=== PATIENT | female | born 1955 | race Caucasian/White ===

== ENCOUNTER → 2018-07-22 07:59 | Outpatient (CLI) | payer MEDICARE, SELFPAY ==
[2018-07-22 10:19] LABS: AST(SGOT) 18 U/L (15-37); Alanine Aminotransfer ALT/SGPT 24 U/L (13-56); Albumin, Serum 3.6 g/dL (3.2-5.0); Alkaline Phosphatase 96 U/L (45-117); Bilirubin, Direct 0.13 mg/dL (0.00-0.30); Cholesterol 186 mg/dL (200); High Density Lipoprotein 45 mg/dL; Protein, Total 7.6 g/dL (6.4-8.2); Triglycerides 302 mg/dL; Very Low Density Lipoprotein 60 mg/dL (5-40)
== END ==
PROVIDERS: Family Provider Internal Medicine; PCP Internal Medicine; Referring Provider Internal Medicine Cardiovascular Disease; Visit Provider Internal Medicine Cardiovascular Disease
DX: E78.5 Hyperlipidemia, unspecified (principal)
CPT/HCPCS: 36415; 80061; 80076

== ENCOUNTER → 2019-03-13 10:53 | Outpatient (CLI) | payer MEDICARE, SELFPAY ==
[2019-03-13 10:08] VITALS: BMI 44.0
--- NOTE | 2019-03-13 11:05 | RAD_ITS ---
STUDY: X-RAY CHEST REASON FOR EXAM: Female, 63 years old. TECHNIQUE: 2 views COMPARISON: March 03, 2017 FINDINGS: The lungs are clear and expanded. There is no demonstrated pleural abnormality. Normal size heart. Normal mediastinum and rhonda. Normal visualized pulmonary arteries. Normal visualized aortic arch and descending thoracic aorta. Mild hypertrophic changes seen involving the thoracic spine. Normal visualized ribs, clavicles, and shoulders. There is no demonstrated abnormality of the visualized soft tissue structures of the upper abdomen. RAD/Chest PA and Lateral IMPRESSION: Normal x-ray examination of the chest. Electronically Signed: Darya Brower, at 15:29 EDT Tel , Service support ,
== END ==
PROVIDERS: Family Provider Internal Medicine; PCP Internal Medicine; Referring Provider Internal Medicine Cardiovascular Disease; Visit Provider Internal Medicine Cardiovascular Disease
DX: R06.00 Dyspnea, unspecified (principal); R06.02 Shortness of breath
CPT/HCPCS: 71046

== ENCOUNTER → 2019-03-18 07:24 | Outpatient (CLI) | payer MEDICARE, SELFPAY ==
[2019-03-13 10:08] VITALS: BMI 44.0
[2019-03-18 08:03] LABS: Hematocrit 37.1 % (37-47); Hemoglobin 11.8 g/dl (12.0-15.0); Mean Corp Hgb Conc 31.8 g/gl (32-36); Mean Corpuscular Hgb 25.3 pg (27.0-32.0); Mean Corpuscular Volume 79.6 fL (81-99); Mean Platelet Vol. 9.3 fl (6.2-12.0); Platelet Count 304 K/mm3 (150-450); RBC Distribution Width CV 14.9 % (11.6-14.6); RBC Distribution Width SD 42.7 fl (35.1-43.9); Red Blood Count 4.66 M/mm3 (4.2-5.4); White Blood Count 9.3 K/mm3 (4.4-11.0)
[2019-03-18 08:07] LABS: Scan Indicated on CBC? Y/N NO
[2019-03-18 08:25] LABS: Anion Gap 6 (5-15); BUN 15 mg/dL (7-18); BUN/Creat Ratio 22.7 RATIO (10-20); Chloride 103 mmol/L (98-107); Creatinine, Serum 0.66 mg/dL (0.55-1.02); EST Glomerular Filtration Rate 97 mL/min (>60); Est Glom Filt Rate - Afr Amer 117 mL/min (>60); Glucose 162 mg/dL (74-106); Potassium 3.3 mmol/L (3.5-5.1); Sodium Level 139 mmol/L (136-145)
== END ==
PROVIDERS: Family Provider Internal Medicine; PCP Internal Medicine; Referring Provider Internal Medicine Cardiovascular Disease; Visit Provider Internal Medicine Cardiovascular Disease
DX: E87.5 Hyperkalemia (principal); I47.1 Supraventricular tachycardia; I10 Essential (primary) hypertension; Z98.890 Other specified postprocedural states
CPT/HCPCS: 36415; 80048; 85027

== ENCOUNTER → 2019-03-25 07:30 | Outpatient (CLI) | payer MEDICARE, SELFPAY ==
[2019-03-13 10:08] VITALS: BMI 44.0
[2019-03-25 09:31] LABS: Anion Gap 10 (5-15); BUN 13 mg/dL (7-18); BUN/Creat Ratio 20.6 RATIO (10-20); Chloride 103 mmol/L (98-107); Creatinine, Serum 0.63 mg/dL (0.55-1.02); EST Glomerular Filtration Rate 102 mL/min (>60); Est Glom Filt Rate - Afr Amer 123 mL/min (>60); Glucose 188 mg/dL (74-106); Potassium 3.8 mmol/L (3.5-5.1); Sodium Level 141 mmol/L (136-145)
== END ==
PROVIDERS: Family Provider Internal Medicine; PCP Internal Medicine; Referring Provider Internal Medicine Cardiovascular Disease; Visit Provider Internal Medicine Cardiovascular Disease
DX: E87.6 Hypokalemia (principal)
CPT/HCPCS: 36415; 80048

== ENCOUNTER → 2019-04-01 05:53 | Outpatient (CLI) | payer MEDICARE, SELFPAY ==
[2019-03-13 10:08] VITALS: BMI 44.0
--- NOTE | 2019-04-01 06:10 | ECHOCS_ITS ---
Reason For Study: DYSPNEA Procedure This was a 2D Doppler, Color Flow transthoracic echocardiogram. The study was technically difficult. Contrast injection was performed. Exam performed in department. Left Ventricle Normal LV size. Left ventricular systolic function is normal. The estimated ejection fraction is 65 %. No evidence for diastolic dysfunction. No regional wall motion abnormalities noted. Right Ventricle Normal RV size. Normal systolic function. Atria The left atrium is mildly enlarged. Normal right atrium. No doppler evidence for ASD. Mitral Valve There is no mitral annular calcification. Normal mitral valve. Mild (1+) mitral valve insufficiency. Tricuspid Valve Normal tricuspid valve. Mild tricuspid valve insufficiency. Right ventricular systolic pressure estimated to be 31 mmHg. Aortic Valve Trisinus/trileaflet aortic valve. Normal aortic valve. Pulmonic Valve The pulmonic valve is not well visualized. Great Vessels Normal sized aortic root. Pericardium/Pleural No pericardial effusion. Medication Diluted definity 2ml given slow IV push to enhance endocardial definition. MMode/2D Measurements & Calculations LVIDd: 4.8 cm IVSd: 0.81 cm Ao root diam: 2.7 cm LVIDs: 3.5 cm LVPWd: 0.81 cm RVDd: 3.4 cm FS: 27.8 % LAV(MOD-bp): 58.0 ml LVAd ap4: 35.5 cm2 SV(MOD-sp4): 80.3 ml LAV(MOD-bp) Indexed: 28.9 ml/m2 EDV(MOD-sp4): 122.3 ml LAV(MOD-sp2): 61.6 ml EDV(sp4-el): 129.9 ml LAV(MOD-sp4): 54.0 ml LVAs ap4: 18.3 cm2 ESV(MOD-sp4): 42.0 ml ESV(sp4-el): 44.6 ml EF(MOD-sp4): 65.7 % EF(sp4-el): 65.7 % SV(sp4-el): 85.3 ml LA A4 area: 20.1 cm2 LA dimension(2D): 4.0 cm RA A4 area: 17.1 cm2 Time Measurements MV dec time: 0.23 sec Doppler Measurements & Calculations MV E max alber: 89.1 cm/sec Lat Peak E' Alber: 9.2 cm/sec Med Peak E' Alber: 6.4 cm/sec MV A max alber: 105.3 cm/sec E/E' lat: 9.7 E/E' med: 13.9 MV E/A: 0.85 Ao V2 max: 138.2 cm/sec LV V1 max: 113.6 cm/sec PA V2 max: 99.3 cm/sec Ao max P.6 mmHg LV V1 max P.2 mmHg TR max alber: 265.1 cm/sec TR max P.2 mmHg Interpretation Summary The study was technically difficult. Contrast injection was performed. Left ventricular systolic function is normal. The estimated ejection fraction is 65 %. The left atrium is mildly enlarged. Mild (1+) mitral valve insufficiency. Mild tricuspid valve insufficiency. Right ventricular systolic pressure estimated to be 31 mmHg. No evidence for diastolic dysfunction. Ordering Physician: Rafita Monterroso Referring Physician: ADINA FRAZIER Performed By: Eulalia Arboleda, RDCS, RVT
--- NOTE | 2019-04-01 14:22 | STRESSREP_ITS ---
Stress Test Report Date: 04-01-19 Procedure: Exercise tolerance test/imaging study Indications: Shortness of breath/dyspnea Consent: Per the patient Procedure: The patient exercised on a Miky protocol for 4 minutes of 15 seconds completing Stage I and 1 minute and 15 seconds of Stage II achieving a peak heart rate of 157 bpm (98 % predicted maximal heart rate) with a peak blood pressure 180/70 mmHg and a peak MET capacity of 6 METs. The baseline ECG demonstrated normal sinus rhythm; nonspecific T wave abnormality. The peak exercise ECG demonstrated somatic/motion artifact with continued nonspecific T wave abnormality. There was a rare PVC during exercise. The functional capacity was considered decreased. There was no complaint of chest discomfort during exercise or recovery. The examination was discontinued secondary to dyspnea and hip discomfort. Impression: 1. Technically adequate (percent predicted maximal heart rate greater than 85%) exercise tolerance test 2. Peak exercise ECG demonstrated somatic/motion artifact with continued nonspecific T wave abnormality 3. There was a rare PVC during exercise 4. Nuclear images pending Myocardial perfusion imaging study: Technique: The patient was injected with 14.4 mCi of technetium 99m Cardiolite and subsequently rest SPECT Cardiolite nuclear imaging was obtained in the ho rizontal long, vertical long, and short axis views. The patient exercised on a Miky protocol for 4 minutes of 15 seconds completing Stage I and 1 minute and 15 seconds of Stage II achieving a peak heart rate of 157 bpm (98 % predicted maximal heart rate) with a peak blood pressure 180/70 mmHg and a peak MET capacity of 6 METs. The patient was injected with 44.6 mCi of technetium 99m Cardiolite and subsequently stress SPECT Cardiolite nuclear imaging was obtained in the horizontal long, vertical long, and short axis views. A gated Cardiolite study at peak stress was obtained. Interpretation: Rest and stress SPECT Cardiolite nuclear imaging status post realignment, normalization, and attenuation correction, demonstrates relative uniform tracer uptake and myocardial perfusion appearing within normal limits. There is end systolic thickening and brightening. The gated Cardiolite study demonstrates myocardial thickening and inward wall motion. The reported LVEF is 71 %. Impression: 1. Rest and stress SPECT Cardiolite nuclear imaging demonstrate relative uniform tracer uptake and myocardial perfusion appearing within normal limits. 2. The gated Cardiolite study reports an LVEF of 71 %. This note was generated with [email or web address] software. It may contain incorrect words, spelling, and punctuation that were not noted in checking the note before signing.
== END ==
PROVIDERS: Family Provider Internal Medicine; PCP Internal Medicine; Referring Provider Internal Medicine Cardiovascular Disease; Visit Provider Internal Medicine Cardiovascular Disease
DX: R07.9 Chest pain, unspecified (principal); I47.1 Supraventricular tachycardia; Z98.890 Other specified postprocedural states
CPT/HCPCS: 78452; 93017; 93225; 93226; 93306; A9500; Q9957; A4216; C8929

== ENCOUNTER → 2019-10-13 12:04 | Outpatient (CLI) | payer MEDICARE, SELFPAY ==
[2019-09-08 10:45] VITALS: BMI 42.2
[2019-10-13 13:22] LABS: AST(SGOT) 23 U/L (15-37); Alanine Aminotransfer ALT/SGPT 27 U/L (13-56); Albumin, Serum 3.5 g/dL (3.2-5.0); Alkaline Phosphatase 93 U/L (45-117); Bilirubin, Direct 0.08 mg/dL (0.00-0.30); Globulin 4.1 g/dL (2.2-4.2); Protein, Total 7.6 g/dL (6.4-8.2)
[2019-10-13 13:26] LABS: T4 Total, Thyroxin 9.1 ug/dL (4.8-13.9); Thyroid Stim Hormone (TSH) 2.38 uIU/mL (0.358-3.74)
== END ==
PROVIDERS: Internal Medicine Cardiovascular Disease; PCP Internal Medicine; Referring Provider Nurse Practitioner Family; Visit Provider Nurse Practitioner Family
DX: E78.5 Hyperlipidemia, unspecified (principal); I47.1 Supraventricular tachycardia; I10 Essential (primary) hypertension
CPT/HCPCS: 36415; 80076; 84436; 84443

== ENCOUNTER → 2022-07-10 | Outpatient (CLI) | payer MEDICARE, SELFPAY ==
--- NOTE | 2022-07-10 16:39 | MRI_ITS ---
STUDY: MR Spine Lumbar W/O Contrast 07/10/2022 9:23 PM REASON FOR EXAM: Female, 67 years old. Low Back pain SPINAL STENOSIS leg pain TECHNIQUE: MR Spine Lumbar W/O Contrast Standardized fat and water weighted pulse sequences were obtained. COMPARISON: ctap 8.26.15 FINDINGS: T12-L1: Loss of intervertebral disc height. There is endplate spondylosis of the vertebral body. Normal central canal and intervertebral neuroforamina. There is bilateral facet arthropathy. Normal lumbar lordosis. There is no substantial scoliosis. Normal conus medullaris that terminates at the L1. L1-2: Loss of intervertebral disc height. There is endplate spondylosis of the vertebral body. Normal central canal and intervertebral neuroforamina. There is bilateral facet arthropathy. L2-3: Normal endplates. Normal disc height, hydration and morphology. Normal bilateral facet joints. Normal central canal and bilateral lateral recesses. Normal bilateral intervertebral neural foramina. L3-4: Loss of intervertebral disc height. There is endplate spondylosis of the vertebral body. Normal central canal and intervertebral neuroforamina. There is bilateral facet arthropathy. L4-5: Loss of intervertebral disc height. There is endplate spondylosis of the vertebral body. There is bilateral facet arthropathy. Mild right neural foraminal stenosis. Compression of exiting nerve roots. L5-S1: Loss of intervertebral disc height. There is endplate spondylosis of the vertebral body. There is bilateral facet arthropathy. Posterior disc bulge. Mild right neural foraminal stenosis. Compression of exiting nerve roots. Normal visualized paraspinous soft tissue structures. MRI/Spine Lumbar (Routine) IMPRESSION: Multilevel degenerative changes, as described above. L5-S1: Mild right neural foraminal stenosis. Compression of exiting nerve roots. Electronically Signed: Virgil Rodrigez MD at 21:27 EDT ,
== END | disposition home or self-care (01) ==
LOC: MRI 16:36
PROVIDERS: PCP Internal Medicine; Visit Provider Orthopaedic Surgery
DX: M48.061 Spinal stenosis, lumbar region without neurogenic claudication (principal); M46.96 Unspecified inflammatory spondylopathy, lumbar region; M47.26 Other spondylosis with radiculopathy, lumbar region
CPT/HCPCS: 72148

== ENCOUNTER 2023-04-24 03:15 | Emergency (ER) | payer MEDICARE, SELFPAY ==
[2023-04-24 03:15] VITALS: BP 164/74; PULSE 100; RESP 16; TEMP 36.4; O2SAT 96; BMI 42.6
--- NOTE | 2023-04-24 03:35 | CT_ITS ---
EXAM: CT ABDOMEN AND PELVIS WITHOUT INTRAVENOUS CONTRAST CLINICAL INDICATION: left flank pain TECHNIQUE: Helically acquired images were obtained of the abdomen and pelvis without intravenous contrast. This CT exam was performed using one or more of the following dose reduction techniques: automated exposure control, adjustment of the mA and/or kV according to patient size, and/or use of iterative reconstruction technique. RADIATION DOSE: CTDIvol = 20.51 mGy, DLP = 927.42 mGy-cm COMPARISON: CT abdomen pelvis 05/12/2015 FINDINGS: LOWER THORAX: Unremarkable. Lung bases are clear. No cardiomegaly. No significant pericardial effusion. ABDOMEN: LIVER: Fatty infiltration of the liver. Hepatomegaly. GALLBLADDER AND BILE DUCTS: Cholecystectomy. No intra- or extrahepatic biliary ductal dilation. PANCREAS: Unremarkable. No focal cystic mass. SPLEEN: Unremarkable. Normal size without focal cystic or solid mass. ADRENALS: Unremarkable. No nodules. KIDNEYS AND URETERS: Unremarkable. Normal renal size and position. No urinary stone or renal obstruction. STOMACH AND BOWEL: Diverticular disease of the colon but no diverticulitis. No stomach or bowel distention. PELVIS: APPENDIX: Possible appendectomy changes. BLADDER: Unremarkable. REPRODUCTIVE: Hysterectomy. ABDOMEN and PELVIS: INTRAPERITONEAL SPACE: Unremarkable. No ascites or other fluid collection. No free air. BONES/JOINTS: Degenerative changes of the spine. No suspicious lytic or blastic abnormality. SOFT TISSUES: Unremarkable. No discrete abdominal or pelvic wall hernia. VASCULATURE: Unremarkable. Abdominal aorta is non-dilated. LYMPH NODES: Unremarkable. No enlarged lymph nodes. CT/Abdomen/Pelvis without Cont IMPRESSION: 1. No acute findings in the abdomen or pelvis. 2. Hepatomegaly with fatty infiltration. 3. Diverticular disease of the colon but no diverticulitis. Electronically Signed: Virgil Liu MD at 4:15 EDT ,
[2023-04-24] MEDS: 0.9% Normal Saline 1,000 ML 999 ML IV (03:43)
[2023-04-24 03:50] LABS: Bacteria 0 SEEN /hpf (None Seen); Mucous, Urine 0 SEEN /hpf (<or=2+); Red Blood Cells-Urine 0 SEEN /hpf (0-5)
[2023-04-24 03:53] LABS: Absolute Lymphocyte Count 2.33 X10^3/uL (0.83-4.51); Absolute Neutrophil Count 6.6 X10^3/uL (2.0-7.7); Basophil# 0.05 X10^3/uL; Basophil% 0.5 % (0-1); Eosinophil# 0.13 X10^3/uL; Eosinophils% 1.3 % (0-5); Hematocrit 37.9 % (37-47); Hemoglobin 11.2 g/dL (12.0-15.0); Lymphocyte # 2.33 X10^3/ul (0.83-4.51); Lymphocyte % 24.1 % (19-41); Mean Corp Hgb Conc 29.6 g/dL (32-36); Mean Corpuscular Hgb 22.6 pg (27.0-32.0); Mean Corpuscular Volume 76.4 fL (81-99); Mean Platelet Vol. 9.5 fl (6.2-12.0); Monocyte% 5.2 % (0-10); NRBC Flagged by Analyzer 0 % (0-5); Neutrophil # 6.64 X10^3/uL (2.7-7.7); Neutrophil % 68.6 % (47-70); Platelet Count 351 K/mm3 (150-450); RBC Distribution Width CV 16.2 % (11.6-14.6); RBC Distribution Width SD 43.7 fl (35.1-43.9); Red Blood Count 4.96 M/mm3 (4.2-5.4); White Blood Count 9.7 K/mm3 (4.4-11.0)
[2023-04-24 03:56] LABS: Color, Urine Yellow (Yellow); Glucose, Dipstick 1000 mg/dl (Normal); Ketone-Dipstick 5 mg/dl (Negative); Leukocyte Esterase-Dipstick 500 /ul (Negative); Nitrite-Dipstick Negative (Negative); Occult Blood-Urine 10 /ul (Negative); Protein-Dipstick 15 mg/dl (Negative); Urine Clarity Clear (Clear); Urine Urobilinogen Normal (Normal)
[2023-04-24 04:09] LABS: Anion Gap 9 (5-15); BUN 13 mg/dL (7-18); BUN/Creat Ratio 16.9 RATIO (10-20); Calcium,Total 8.6 mg/dL (8.5-10.1); Chloride 106 mmol/L (98-107); Creatinine, Serum 0.77 mg/dL (0.55-1.02); EST Glomerular Filtration Rate 80 mL/min (>60); Est Glom Filt Rate - Afr Amer 96 mL/min (>60); Estimated Creatinine Clearance 54.96 ml/min; Glucose 204 mg/dL (74-106); Potassium 3.1 mmol/L (3.5-5.1); Sodium Level 141 mmol/L (136-145)
[2023-04-24 04:35] LABS: Urine Bilirubin Dipstick 3 mg/dL (Negative)
[2023-04-24 04:49] LABS: Squamous Epithelial Cells - UA 0-5 SEEN /hpf (5-10); Transitional Epithelial - Ur 0-5 SEEN /hpf (0-5); White Blood Cells 25-50 SEEN /hpf (0-5)
--- NOTE | 2023-04-24 05:43 | EDS_ITS ---
HPI History of Present Illness Chief Complaint: Flank Pain Informant: patient Narrative Narrative: Patient is a 67-year-old female with past medical history of hypertension supraventricular tachycardia asthma hyperlipidemia and type 2 diabetes. She states she awoke this morning to use the restroom and after doing so developed sharp pain in her left flank. She states that there was no recent trauma or excessive activity and she denies any dysuria associated with today's symptoms. She states that the pain was sharp and wrapping towards her left-sided abdomen and she cannot get the pain under control at home and therefore EMS was called. EMS gave the patient pain medication and upon arrival she states she is nearly pain-free. [facility] Medical History Asthma Colon polyp Diabetes mellitus, type II Diverticulosis Essential hypertension Family history of cardiovascular disease GERD (gastroesophageal reflux disease) Hiatal hernia Hyperlipidemia Hypertension Morbid obesity with BMI of 40.0-44.9, adult Nephrolithiasis Osteoarthritis SVT (supraventricular tachycardia) Home Medications hydrochlorothiazide 25 mg tablet 25 mg PO DAILY 05/12/15 [History Last Taken Unknown] lorazepam 1 mg tablet 1 mg PO PRN PRN Anxiety 05/12/15 [History Last Taken Unknown] losartan 50 mg tablet 50 mg PO BID 05/12/15 [History Last Taken 02/26/17 08:00] aspirin 81 mg tablet,delayed release (Adult Low Dose Aspirin) 81 mg PO DAILY 07/29/18 [History Last Taken Unknown] potassium chloride 10 mEq tablet,extended release(part/cryst) 20 meq PO DAILY 03/18/19 [History Last Taken Unknown] acetaminophen 500 mg tablet 1,000 mg PO Q8 PRN fever or pain 06/07/20 [History Last Taken Unknown] albuterol sulfate 90 mcg/actuation aerosol inhaler (Ventolin HFA) 2 puff inhalation Q4H PRN shortness of breath or wheezing 06/07/20 [History Last Taken Unknown] liraglutide 0.6 mg/0.1 mL (18 mg/3 mL) subcutaneous pen injector 1.8 mg subcut DAILY 06/07/20 [History Last Taken Unknown] meclizine 25 mg tablet 25 mg PO DAILY PRN dizziness 06/07/20 [History Last Taken Unknown] metformin 1,000 mg tablet 1,500 mg PO DAILY 06/07/20 [History Last Taken Unknown] omeprazole 20 mg capsule,delayed release 40 mg PO DAILY 06/07/20 [History Last Taken Unknown] atenolol 50 mg tablet 50 mg PO BID 12/14/20 [History Last Taken Unknown] amlodipine 10 mg tablet 10 mg PO DAILY 11/03/21 [History Last Taken Unknown] atorvastatin 40 mg tablet 80 mg PO DAILY 01/08/23 [History Last Taken Unknown] cholecalciferol (vitamin D3) 1,250 mcg (50,000 unit) capsule 1,250 mcg PO QWEEK 01/08/23 [History Last Taken Unknown] clobetasol 0.05 % topical ointment (Temovate) 1 applic topical DAILY 01/08/23 [History Last Taken Unknown] empagliflozin 10 mg tablet (Jardiance) 10 mg PO DAILY 01/08/23 [History Last Taken Unknown] ferrous sulfate 325 mg (65 mg iron) tablet 325 mg PO DAILY 01/08/23 [History Last Taken Unknown] gabapentin 300 mg capsule 300 mg PO QHS 01/08/23 [History Last Taken Unknown] methocarbamol 500 mg tablet 500 mg PO 4X/DAY PRN PRN Muscle pain/spasm #56 tabs 04/24/23 [Rx Last Taken Unknown] Allergy/AdvReac Type Severity Reaction Status Date / Time Iodinated Contrast Media [CT] AdvReac Other Verified 04/24/23 03:20 Family History Father Cancer Lung COPD (chronic obstructive pulmonary disease) Hypertension Sister Hypertension Sister Hypertension Mother CAD (coronary artery disease) Myocardial infarction CVA (cerebral vascular accident) Hypertension COPD (chronic obstructive pulmonary disease) History of coronary artery bypass surgery Surgical History History of cardiac radiofrequency ablation History of cholecystectomy History of eye surgery History of left cataract extraction History of left knee replacement History of right knee joint replacement History of total hysterectomy Social History Smoking Status: Never smoker alcohol intake: never ROS ROS ED Constitutional Constitutional ED: Denies chills or fever(s) ENT ENT ED: Denies sore throat Cardiovascular Cardiovascular: Denies chest pain Respiratory/Chest Respiratory/Chest: Denies cough or dyspnea Gastrointestinal Gastrointestinal: Reports abdominal pain; Denies diarrhea, nausea or vomiting Genitourinary Genitourinary ED: Denies dysuria Musculoskeletal Musculoskeletal: Reports back pain; Denies myalgias Integumentary Denies rash Neurologic Neurologic: Denies headache(s) Hematologic/Lymphatic Hematologic/Lymphatic: Denies easy bleeding or easy bruising EXAM Physical Exam Const Vital Signs: 04/24/23 03:15 04/24/23 05:51 Temperature 97.5 F L Temperature Source Temporal Pulse Rate 100 77 Respiratory Rate 16 18 Blood Pressure 164/74 H 151/60 H Blood Pressure Mean 104 Pulse Ox 96 97 Positive well nourished, well developed and obese General Appearance ED: well developed Nutritional Appearance: obese HEENT HEENT Narrative: Normocephalic atraumatic Eyes PERRL and EOMs intact bilaterally General Eye ED: Negative for scleral icterus Neck supple Resp normal respiratory effort and clear to auscultation bilaterally Cardio regular rate and regular rhythm Rate: other Other Details: Radial and carotid pulses equal and symmetric GI non-tender, non-distended and no masses GI Narrative: Abdomen is soft nontender and nondistended with hypoactive bowel sounds no voluntary guarding or rigidity no pulsatile mass Auscultation: normoactive bowel sounds Palpation: soft Back/Spine Back/Spine Narrative: Mild left CVA pain noted No saddle anesthesia. Negative straight leg raise. No clonus or Babinski. Patellar reflexes are plus 1 out of 4 bilaterally Extremity normal to inspection Neuro oriented x3, CN's II-XII intact bilaterally and no sensory deficits noted Sensorium / Orientation: alert Motor Exam: strength 5/5 throughout Psych mental status grossly normal Skin no rashes or lesions noted General Skin Exam: Negative for jaundice MDM MDM MDM Narrative Medical decision making narrative: Patient presented to ER hypertensive but does have a past medical history of this. She developed sudden onset left-sided flank pain after urination and differential is for kidney stone versus UTI versus pyelonephritis versus lumbosacral strain. With the sudden onset of pain and no report of excessive activity or trauma there is concern for kidney stone is most likely diagnosis so basic blood work and a noncontrast CT were obtained. Labs revealed no signs of acute kidney injury or severe electrolyte derangement. Urine sample showed blood without infection going against UTI pyelonephritis. CT scan revealed no obvious infection or stones present. On reevaluation the patient is resting comfortably and reports that she is still pain-free. At this time with the sudden onset of pain wrapping towards the left abdomen and the fact urine has a decent amount of blood present without infection I do feel she most likely passed a stone. As she is not showing signs of urosepsis or KELLY and is pain- free there is no need for further evaluation in the ER patient is otherwise safe for discharge History & Record Review Discussion w/independent historian: EMS personnel and Patient Lab Data Attestation: I reviewed the patient's lab results. Labs: Laboratory Results - last 24 hr 04/24/23 03:45 WBC 9.7 RBC 4.96 Hgb 11.2 L Hct 37.9 MCV 76.4 L MCH 22.6 L MCHC 29.6 L RDW Std Deviation 43.7 RDW Coeff of Krystal 16.2 H Plt Count 351 MPV 9.5 Immature Gran % (Auto) 0.300 Neut % (Auto) 68.6 Lymph % (Auto) 24.1 [place] % (Auto) 5.2 Eos % (Auto) 1.3 Baso % (Auto) 0.5 Absolute Neuts (auto) 6.6 Absolute Lymphs (auto) 2.33 Nucleated RBC % 0 Sodium 141 Potassium 3.1 L Chloride 106 Carbon Dioxide 26.0 Anion Gap 9 BUN 13 Creatinine 0.77 Estim Creat Clear Calc 54.96 Est GFR (MDRD) Af Amer 96 Est GFR (MDRD) Non-Af 80 BUN/Creatinine Ratio 16.9 Glucose 204 H Calcium 8.6 Urine Color Yellow Urine Clarity Clear Urine pH 6.0 Ur Specific [place] 1.010 Urine Protein 15 H Urine Glucose (UA) 1000 H Urine Ketones 5 H Urine Occult Blood 10 H Urine Nitrite Negative Urine Bilirubin 3 H Urine Urobilinogen Normal Ur Leukocyte Esterase 500 H Urine RBC 0 SEEN Urine WBC 25-50 SEEN Ur Squamous Epith Cells 0-5 SEEN Ur Transition Epith Cell 0-5 SEEN Urine Bacteria 0 SEEN Urine Mucus 0 SEEN Radiography Diagnostic Testing: Clinical Impression(s) from Imaging Studies Abdomen/Pelvis CT 04/24/23 03:35 IMPRESSION: 1. No acute findings in the abdomen or pelvis. 2. Hepatomegaly with fatty infiltration. 3. Diverticular disease of the colon but no diverticulitis. Electronically Signed: Virgil Liu MD at 4:15 EDT , Discharge Plan Triage Chief Complaint: Flank Pain ED Provider: Uziel Crawford Dx/Rx/DC Orders Clinical Impression: Left flank pain, Acute lumbosacral myofascial strain, Essential hypertension, Diabetes mellitus, type II Instructions: ED Back Sprain/Strain, ED Flank Pain, Uncertain Cause Prescriptions: New methocarbamol 500 mg tablet 500 mg PO 4X/DAY PRN PRN (Reason: Muscle pain/spasm) Qty: 56 1RF No Action aspirin [Adult Low Dose Aspirin] 81 mg tablet,delayed release (DR/EC) 81 mg PO DAILY albuterol sulfate [Ventolin HFA] 90 mcg/actuation HFA aerosol inhaler 2 puff INHALATION Q4H PRN (Reason: shortness of breath or wheezing) meclizine 25 mg tablet 25 mg PO DAILY PRN (Reason: dizziness) acetaminophen 500 mg tablet 1,000 mg PO Q8 PRN (Reason: fever or pain) atenolol 50 mg tablet 50 mg PO BID amlodipine 10 mg tablet 10 mg PO DAILY cholecalciferol (vitamin D3) 1,250 mcg (50,000 unit) capsule 1,250 mcg PO QWEEK Rx Instructions: [id number] clobetasol [Temovate] 0.05 % ointment 1 applic topical DAILY Jardiance 10 mg tablet 10 mg PO DAILY ferrous sulfate 325 mg (65 mg iron) tablet 325 mg PO DAILY gabapentin 300 mg capsule 300 mg PO QHS losartan 50 MG tablet 50 mg PO BID hydrochlorothiazide 25 MG tablet 25 mg PO DAILY lorazepam 1 MG tablet 1 mg PO PRN PRN (Reason: Anxiety) omeprazole 20 mg capsule,delayed release(DR/EC) 40 mg PO DAILY potassium chloride 10 mEq tablet,ER particles/crystals 20 meq PO DAILY metformin 1,000 mg tablet 1,500 mg PO DAILY liraglutide 0.6 mg/0.1 mL (18 mg/3 mL) pen injector 1.8 mg SC DAILY Patient Comments: DIABETES atorvastatin 40 mg tablet 80 mg PO DAILY Primary Care Provider: Arley Gonzalez Referrals: Arley Gonzalez MD [Primary Care Provider] - Activity Restrictions/Additional Instructions: Your CT scan did not show a kidney stone however urine had blood present and with this history you most likely passed a stone recently. There is also no signs of urinary tract infection. Please continue on your medications as directed by your doctor but take the muscle relaxer to help with any pain or spasm and return to the ER should you have any further concerns Disposition Disposition: Home, Self Care Discharge Date/Time: 04/24/23 05:52
[2023-04-24 05:51] VITALS: BP 151/60; PULSE 77; RESP 18; O2SAT 97
== END 2023-04-24 05:52 | disposition home or self-care (01) ==
PROVIDERS: Emergency Provider Emergency Medicine; PCP Internal Medicine; Visit Provider Emergency Medicine
DX: S39.012A Strain of muscle, fascia and tendon of lower back, initial encounter (principal); E66.01 Morbid (severe) obesity due to excess calories; Z68.41 Body mass index [BMI] 40.0-44.9, adult; E11.9 Type 2 diabetes mellitus without complications; X58.XXXA Exposure to other specified factors, initial encounter; I10 Essential (primary) hypertension; Z79.82 Long term (current) use of aspirin; Z79.84 Long term (current) use of oral hypoglycemic drugs; Z79.899 Other long term (current) drug therapy; Z87.442 Personal history of urinary calculi; Z82.49 Family history of ischemic heart disease and other diseases of the circulatory system
CPT/HCPCS: 74176; 80048; 81001; 85025; 96360; 96361; 99285; J7030; A4216

== ENCOUNTER → 2024-04-14 | Outpatient (CLI) | payer MEDICARE, SELFPAY ==
--- NOTE | 2024-04-14 10:47 | ECHOCS_ITS ---
Reason For Study: HTN Procedure This was a 2D Doppler, Color Flow transthoracic echocardiogram. The study was technically limited. Contrast injection was performed. Exam performed in department. Left Ventricle Normal LV size. Left ventricular systolic function is normal. The left ventricular ejection fraction is 65 %. No regional wall motion abnormalities noted. Right Ventricle Normal RV size. Normal systolic function. Atria Normal left atrium. Normal right atrium. Mitral Valve Normal mitral valve. Tricuspid Valve Normal tricuspid valve. Mild (1+) tricuspid valve insufficiency. Pulmonary artery systolic pressure is 30 mmHg. Aortic Valve Trisinus/trileaflet aortic valve. Pulmonic Valve Normal pulmonic valve. Great Vessels Normal aortic root. The pulmonary artery is normal size. Inferior vena cava collapse with respiration. Pericardium/Pleural No pericardial effusion. MMode/2D Measurements & Calculations LVIDd: 4.1 cm IVSd: 1.1 cm LVOT diam: 1.9 cm LVIDs: 3.3 cm LVPWd: 1.1 cm LVOT area: 2.7 cm2 RVDd: 3.3 cm FS: 21.2 % Ao root diam: 3.3 cm LAV(MOD-bp): 53.6 ml LVAd ap4: 31.0 cm2 LAV(MOD-bp) Indexed: 27.7 ml/m2 LVLd ap4: 7.9 cm LAV(MOD-sp2): 54.7 ml EDV(MOD-sp4): 99.8 ml LAV(MOD-sp4): 52.1 ml EDV(sp4-el): 102.7 ml LVAs ap4: 16.3 cm2 LVLs ap4: 6.5 cm ESV(MOD-sp4): 35.2 ml ESV(sp4-el): 34.7 ml EF(MOD-sp4): 64.8 % EF(sp4-el): 66.2 % SV(MOD-sp4): 64.6 ml SV(sp4-el): 68.0 ml LA A4 area: 19.6 cm2 LA dimension(2D): 4.6 cm RA A4 area: 15.5 cm2 TAPSE: 2.1 cm Time Measurements MV dec time: 0.21 sec Doppler Measurements & Calculations MV E max alber: 73.4 cm/sec Lat Peak E' Alber: 19.0 cm/sec Med Peak E' Alber: 5.1 cm/sec MV A max alber: 85.7 cm/sec E/E' lat: 3.9 E/E' med: 14.4 MV E/A: 0.86 MV V2 max: 87.4 cm/sec Ao V2 max: 122.9 cm/sec MV max P.1 mmHg MV dec slope: 350.7 cm/sec2 Ao max P.0 mmHg MV V2 mean: 60.8 cm/sec Ao V2 mean: 84.2 cm/sec MV mean P.6 mmHg Ao mean P.3 mmHg MV V2 VTI: 27.3 cm Ao V2 VTI: 28.3 cm AV (velocity ratio): 0.90 MVA(VTI): 2.6 cm2 ADEN(I,D): 2.5 cm2 ADEN(V,D): 2.7 cm2 LV V1 max: 119.5 cm/sec SV(LVOT): 69.8 ml PA V2 max: 93.0 cm/sec LV V1 max P.7 mmHg PA V2 mean: 59.3 cm/sec LV V1 mean P.3 mmHg LV V1 mean: 85.4 cm/sec LV V1 VTI: 25.4 cm TR max alber: 257.4 cm/sec TR max P.5 mmHg ECHO/Echo Complete W/ Contrast Interpretation Summary Normal LV size. Left ventricular systolic function is normal. The left ventricular ejection fraction is 65 %. Pulmonary artery systolic pressure is 30 mmHg. Contrast injection was performed. Ordering Physician: Jerry Andrade Referring Physician: Jerry Andrade Performed By: Taylor Jackson RCS
== END | disposition home or self-care (01) ==
PROVIDERS: PCP Internal Medicine; Referring Provider Internal Medicine Cardiovascular Disease; Visit Provider Internal Medicine Cardiovascular Disease
DX: R94.31 Abnormal electrocardiogram [ECG] [EKG] (principal); I10 Essential (primary) hypertension
CPT/HCPCS: 93306; Q9957; A4216; C8929